=== PATIENT | male | born 1995 | race Caucasian/White ===

== ENCOUNTER 2016-12-18 12:23 | Emergency (ER) | payer OTHER ==
[2016-12-18 12:41] VITALS: RESP 18
--- NOTE | 2016-12-18 13:07 | ED ---
URI HPI - General Chief Complaint: Upper Respiratory Infection Stated Complaint: Sinus Infection Time Seen by Provider: 12/18/16 12:52 Source: patient, RN notes reviewed Mode of arrival: ambulatory Limitations: no limitations - History of Present Illness Initial Comments: 21-year-old male presents to the emergency department with a chief complaint of cough cold runny nose like symptoms. The patient has been sick for the last day or so. He states she's had a lot of nasal drainage and a lot of facial pressure. Patient states he hasn't had a fever or chills. Patient states that he hasn't had any nausea or vomiting with this. Patient states he is concerned due to his continued symptoms so he thought that he should be evaluated. Patient states that he is not currently having any other complaints at this time. Patient denies any recent fever, chills, shortness of breath, chest pain, back pain, abdominal pain, nausea vomiting, numbness or tingling, dysuria or hematuria, constipation or diarrhea, headaches or visual changes, or any other current symptoms. - Related Data Previous Rx's Medication Instructions Recorded Azithromycin [Zithromax] 250 mg PO DIRECTED #6 tab 12/18/16 Allergies Allergy/AdvReac Type Severity Reaction Status Date / Time banana Allergy Nausea & Verified 12/18/16 13:17 Vomiting Review of Systems ROS Statement: Those systems with pertinent positive or pertinent negative responses have been documented in the HPI. ROS Other: All systems not noted in ROS Statement are negative. Past Medical History Past Medical History: No Reported History History of Any Multi-Drug Resistant Organisms: None Reported Additional Past Surgical History / Comment(s): Left Ear reconstruction Past Psychological History: ADD/ADHD Smoking Status: Never smoker Past Alcohol Use History: None Reported Past Drug Use History: Marijuana General Exam - General Exam Comments Initial Comments: General exam: Alert, active, comfortable in no apparent distress Head: Normocephalic Eyes: Normal reaction of pupils, equal size, normal range of extraocular motion Ears: normal external ear canals, pink tympanic membranes with normal cone of light on the right, patient does appear to have erythematous left tympanic membrane Nose: clear with pink turbinates Throat: no erythema or exudates with normal sized tonsils Neck: no masses, no nuchal rigidity Chest: no chest wall deformity Lungs: equal air entry with no crackles or wheeze CVS: S1 and S2 normal with no audible mumurs, regular rhythm Abdomen: no hepatosplenomegaly, normal bowel sounds, no guarding or rigidity Spine: no scoliosis or deformity Skin: no rashes Neurological: No focal deficits, tone is normal in all 4 extremities Limitations: no limitations Course Vital Signs 12/18/16 12:39 Temperature 99.2 F Pulse Rate 67 Respiratory 18 Rate Blood Pressure 116/61 O2 Sat by Pulse 100 Oximetry Medical Decision Making - Medical Decision Making 21-year-old male presents emergency Department what appears to be an otitis media on the left ear. This time we'll start the patient on azithromycin. We did discuss Motrin Tylenol for fever control. We discussed return parameters and stated that he understood and all his questions have been answered. At this time the patient will be discharged home. - Radiology Data Radiology results: report reviewed, image reviewed Disposition Clinical Impression: Left otitis media Disposition: HOME SELF-CARE Condition: Stable Instructions: Otitis Media (ED) Additional Instructions: Please use medication as discussed. Please follow up with family doctor if symptoms have not improved over the next two days. Please return to the emergency room if your symptoms increase or worsen or for any other concerns. Prescriptions: Azithromycin [Zithromax] 250 mg PO DIRECTED #6 tab Referrals: Geovanny Vogel MD [Primary Care Provider] - 1-2 days Time of Disposition: 13:21
--- NOTE | 2016-12-18 13:14 | XR ---
EXAMINATION TYPE: XR chest 2V DATE OF EXAM: 12/18/2016 1:10 PM COMPARISON: None HISTORY: 21-year-old male with cough and congestion TECHNIQUE: PA and lateral views FINDINGS: The cardiomediastinal silhouette, aorta, and pulmonary vasculature are within normal limits. There is peribronchial cuffing noted. No consolidation, air leak, or pleural effusion. IMPRESSION: Peribronchial cuffing suggests bronchitis, chronic asthma, or viral small airways disease.
[2016-12-18 13:38] VITALS: BP 115/68; PULSE 81; TEMP 97.9
== END 2016-12-18 13:37 | disposition home or self-care (01) ==
LOC: EC 12:23
DX: H66.92 Otitis media, unspecified, left ear (principal); R05 Cough; R09.89 Other specified symptoms and signs involving the circulatory and respiratory systems; Z91.018 Allergy to other foods
CPT/HCPCS: 71020; 99283

== ENCOUNTER 2017-08-19 23:47 | Emergency (ER) | payer OTHER ==
[2017-08-19 23:53] VITALS: BP 138/78; PULSE 88; RESP 16; TEMP 98.1
[2017-08-19] MEDS ORDERED: AMOXICILLIN 875 MG TAB PO STA (23:59)
--- NOTE | 2017-08-20 | ED ---
ENT HPI - General Chief complaint: ENT Stated complaint: earache Time Seen by Provider: 08/19/17 23:56 Source: patient, RN notes reviewed Mode of arrival: ambulatory Limitations: no limitations - History of Present Illness Initial comments: 21-year-old male present emergency from chief complaint left ear pain. Patient states that he's been sick last 2 days with sinus congestion. Patient did reconstructive surgery on his left ear. He states concern is that increase in pain. Patient also said mild right ear pain. Denies sore throat, cough, chest congestion. Patient does admit to low-grade temp at home. Patient has not taken any [id number] cough and cold medications. He has taken some ibuprofen. - Related Data Previous Rx's Medication Instructions Recorded Amoxicillin 875 mg PO Q12HR #20 tablet 08/20/17 Allergies Allergy/AdvReac Type Severity Reaction Status Date / Time banana Allergy Nausea & Verified 12/18/16 13:17 Vomiting Review of Systems ROS Statement: Those systems with pertinent positive or pertinent negative responses have been documented in the HPI. ROS Other: All systems not noted in ROS Statement are negative. Past Medical History Past Medical History: No Reported History History of Any Multi-Drug Resistant Organisms: None Reported Additional Past Surgical History / Comment(s): Left Ear reconstruction Past Psychological History: ADD/ADHD Smoking Status: Never smoker Past Alcohol Use History: Occasional Past Drug Use History: Marijuana General Exam Limitations: no limitations General appearance: alert, in no apparent distress Head exam: Present: atraumatic, normocephalic, normal inspection Eye exam: Present: normal appearance, PERRL, EOMI. Absent: scleral icterus, conjunctival injection, periorbital swelling ENT exam: Present: normal oropharynx, mucous membranes moist, normal external ear exam. Absent: normal exam, TM's normal bilaterally (Mild erythema left) Neck exam: Present: normal inspection, full ROM. Absent: tenderness, meningismus, lymphadenopathy Respiratory exam: Present: normal lung sounds bilaterally. Absent: respiratory distress, wheezes, rales, rhonchi, stridor Cardiovascular Exam: Present: regular rate, normal rhythm, normal heart sounds. Absent: systolic murmur, diastolic murmur, rubs, gallop, clicks Course Vital Signs 08/19/17 23:51 Temperature 98.1 F Pulse Rate 88 Respiratory 16 Rate Blood Pressure 138/78 O2 Sat by Pulse 97 Oximetry Medical Decision Making - Medical Decision Making 21-year-old male present emergency from for left ear pain. Patient is mild erythema consistent with early otitis media. Patient was started on amoxicillin return parameters were discussed. Disposition Clinical Impression: Otitis media Disposition: HOME SELF-CARE Condition: Stable Instructions: Earache (ED) Additional Instructions: Please return to the Emergency Department if symptoms worsen or any other concerns. Prescriptions: Amoxicillin 875 mg PO Q12HR #20 tablet Referrals: Geovanny Vogel MD [Primary Care Provider] - 1-2 days
== END 2017-08-20 00:19 | disposition home or self-care (01) ==
LOC: EC 23:47
DX: H60.92 Unspecified otitis externa, left ear (principal); R09.81 Nasal congestion; R05 Cough; Z91.018 Allergy to other foods
CPT/HCPCS: 99282

== ENCOUNTER 2017-09-08 20:19 | Emergency (ER) | payer OTHER ==
[2017-09-08 20:25] VITALS: BP 137/72; PULSE 80; RESP 18; TEMP 98
--- NOTE | 2017-09-08 20:38 | ED ---
General Adult HPI - General Chief complaint: Recheck/Abnormal Lab/Rx Stated complaint: STD Testing Time Seen by Provider: 09/08/17 20:20 Source: patient, RN notes reviewed Mode of arrival: ambulatory Limitations: no limitations - History of Present Illness Initial comments: This is a 22-year-old male who was recently diagnosed with herpes. Patient states he went to the clinic and they did a culture and they put him on acyclovir. Patient states since then he followed up with health department they did a culture and he is to get the results from there. Patient states he came in today to get a third culture. Patient states the lesions are still there but he wants to know if he has herpes type I and type II even though he hasn't got the results back from either of the other 2 cultures yet. Patient denies any new symptoms. Patient denies any fever chills per patient denies any penile drainage. - Related Data Home Medications Medication Instructions Recorded Confirmed No Known Home Medications [No 09/08/17 09/08/17 Known Home Medications] Allergies Allergy/AdvReac Type Severity Reaction Status Date / Time banana Allergy Nausea & Verified 09/08/17 20:25 Vomiting Review of Systems ROS Statement: Those systems with pertinent positive or pertinent negative responses have been documented in the HPI. ROS Other: All systems not noted in ROS Statement are negative. Past Medical History Past Medical History: No Reported History History of Any Multi-Drug Resistant Organisms: None Reported Additional Past Surgical History / Comment(s): Left Ear reconstruction Past Psychological History: ADD/ADHD Smoking Status: Never smoker Past Alcohol Use History: Occasional Past Drug Use History: Marijuana General Exam - General Exam Comments Initial Comments: GENERAL: Patient is well-developed and well-nourished. Patient is nontoxic and well- hydrated and is in no acute distress. ENT: Neck is soft and supple. No significant lymphadenopathy is noted. Oropharynx is clear. Moist mucous membranes. EYES: The sclera were anicteric and conjunctiva were pink and moist. Extraocular movements were intact and pupils were equal round and reactive to light. Eyelids were unremarkable. NEUROLOGIC: Patient is alert and oriented x3. Cranial nerves II through XII are grossly intact. Motor and sensory are also intact. Normal speech, volume and content. Symmetrical smile. Cerebellar exam grossly intact. MUSCULOSKELETAL: Normal extremities with adequate strength and full range of motion. PSYCHIATRIC: Normal psychiatric evaluation. Limitations: no limitations Course Vital Signs 09/08/17 20:22 Temperature 98 F Pulse Rate 80 Respiratory 18 Rate Blood Pressure 137/72 O2 Sat by Pulse 99 Oximetry Disposition Clinical Impression: History of herpes genitalis Disposition: HOME SELF-CARE Referrals: Geovanny Vogel MD [Primary Care Provider] - 1-2 days Time of Disposition: 20:38
== END 2017-09-08 20:54 | disposition home or self-care (01) ==
LOC: EC 20:19
DX: A60.00 Herpesviral infection of urogenital system, unspecified (principal); Z91.018 Allergy to other foods
CPT/HCPCS: 99281

== ENCOUNTER 2019-02-20 11:33 | Emergency (ER) | payer OTHER ==
[2019-02-20 11:43] VITALS: BP 127/74; PULSE 60; RESP 18; TEMP 98.2
[2019-02-20] MEDS ORDERED: DEXAMETHASONE SOD PHOSPHATE 10 MG/ML 1 ML VIAL IM STA (12:07)
[2019-02-20] MEDS ORDERED: IBUPROFEN 800 MG TAB PO STA (12:07)
[2019-02-20] MEDS ORDERED: ACETAMINOPHEN TAB 500 MG TAB PO STA (12:07)
--- NOTE | 2019-02-20 13:24 | XR ---
EXAMINATION TYPE: XR lumbosacral spine min 4V DATE OF EXAM: 02/20/2019 COMPARISON: NONE HISTORY: 28-year-old male with sciatic pain for 4 days TECHNIQUE: 5 views FINDINGS: 5 lumbar type vertebral bodies. Facet arthropathy lower lumbar spine. Vertebral body heights are pres erved and alignment is maintained. IMPRESSION: No vertebral compression collapse or malalignment. Mild facet arthropathy lower lumbar spine.
--- NOTE | 2019-02-20 13:29 | ED ---
Back Pain HPI - General Chief Complaint: Back Pain/Injury Stated Complaint: Back Pain/Numbness Time Seen by Provider: 02/20/19 11:47 Source: patient, RN notes reviewed, old records reviewed Limitations: no limitations - History of Present Illness Initial Comments: This is a 23-year-old male the ER for evasive back pain. No history of back injury or trauma. Patient is complaining of pain in his right thigh right hamstring down back of right leg. Patient denies trauma. No fevers. No loss of bowel or bladder. No other complaints. MD Complaint: back pain, other (Right leg pain) -: days(s) Similar Symptoms Previously: No Place: home Radiation: none Severity: mild Severity scale (1-10): 3 Quality: sharp, tingling Consistency: intermittent Improves With: none Worsens With: none Context: unknown Associated Symptoms: denies other symptoms - Related Data Home Medications Medication Instructions Recorded Confirmed No Known Home Medications 09/08/17 02/20/19 Allergies Allergy/AdvReac Type Severity Reaction Status Date / Time banana AdvReac Nausea & Verified 02/20/19 12:26 Vomiting Review of Systems ROS Statement: Those systems with pertinent positive or pertinent negative responses have been documented in the HPI. ROS Other: All systems not noted in ROS Statement are negative. Past Medical History Past Medical History: No Reported History History of Any Multi-Drug Resistant Organisms: None Reported Past Surgical History: Ear Surgery Additional Past Surgical History / Comment(s): Left Ear reconstruction Past Psychological History: ADD/ADHD Smoking Status: Never smoker Past Alcohol Use History: None Reported Past Drug Use History: Marijuana General Exam Limitations: no limitations General appearance: alert, in no apparent distress Head exam: Present: atraumatic, normocephalic, normal inspection Eye exam: Present: normal appearance, PERRL, EOMI. Absent: scleral icterus, conjunctival injection, periorbital swelling ENT exam: Present: normal exam, mucous membranes moist Neck exam: Present: normal inspection. Absent: tenderness, meningismus, lymphadenopathy Respiratory exam: Present: normal lung sounds bilaterally. Absent: respiratory distress, wheezes, rales, rhonchi, stridor Cardiovascular Exam: Present: regular rate, normal rhythm, normal heart sounds. Absent: systolic murmur, diastolic murmur, rubs, gallop, clicks GI/Abdominal exam: Present: soft, normal bowel sounds. Absent: distended, tenderness, guarding, rebound, rigid Extremities exam: Present: normal inspection, full ROM, normal capillary refill. Absent: tenderness, pedal edema, joint swelling, calf tenderness Back exam: Present: normal inspection Neurological exam: Present: alert, oriented X3, CN II-XII intact Psychiatric exam: Present: normal affect, normal mood Skin exam: Present: warm, dry, intact, normal color. Absent: rash Course Vital Signs 02/20/19 11:40 Temperature 98.2 F Pulse Rate 60 Respiratory 18 Rate Blood Pressure 127/74 O2 Sat by Pulse 100 Oximetry Medical Decision Making - Medical Decision Making 23 male the ER for evaluation of back pain. Patient's back pain improved here in the ER. X-rays normal patient can be discharged home - Radiology Data Radiology results: report reviewed (X-ray lumbar sacral spine negative for traumatic injury), image reviewed Disposition Clinical Impression: Sciatica, Lumbar radiculopathy Disposition: HOME SELF-CARE Condition: Good Instructions (If sedation given, give patient instructions): Acute Low Back Pain (ED) Is patient prescribed a controlled substance at d/c from ED?: No Referrals: Geovanny Vogel MD [Primary Care Provider] - 1-2 days
== END 2019-02-20 14:07 | disposition home or self-care (01) ==
LOC: EC 11:33
DX: M54.16 Radiculopathy, lumbar region (principal); M54.31 Sciatica, right side; Z91.018 Allergy to other foods
CPT/HCPCS: 72110; 99284; 96372; J1100

== ENCOUNTER 2019-11-21 09:42 | Emergency (ER) | payer OTHER ==
[2019-11-21 09:47] VITALS: BP 101/70; PULSE 72; RESP 18; TEMP 97.4
--- NOTE | 2019-11-21 10:28 | ED ---
General Adult HPI - General Chief complaint: ENT Stated complaint: ears bothering him Time Seen by Provider: 11/21/19 10:05 Source: patient, RN notes reviewed Mode of arrival: ambulatory Limitations: no limitations - History of Present Illness Initial comments: 24-year-old male presents to the emergency determine for bilateral ear pain. Patient states that his ears have felt like pressure in them for the past week. States that he feels mildly congested as well. He states pain is only minimal. He has not had any fevers or chills. He denies neck stiffness. Denies any drainage from the ears. States he is able to hear out of his ears. Patient has not tried any medications. Patient did have his left eardrum reconstructed when he was a child after a perforation. No other problems with this. Patient has no other complaints at this time including shortness of breath, chest pain, abdominal pain, nausea or vomiting, headache, or visual changes. - Related Data Previous Rx's Medication Instructions Recorded Amoxicillin/Potassium Clav 1 tab PO Q12HR #20 tab 11/21/19 [Augmentin 875-125 Tablet] Fluticasone Nasal [place] [Flonase 1 spray EA NOSTRIL DAILY 7 Days #1 11/21/19 Nasal [place]] bottle Loratadine [Claritin] 10 mg PO DAILY #20 tab 11/21/19 Allergies Allergy/AdvReac Type Severity Reaction Status Date / Time banana AdvReac Nausea & Verified 11/21/19 09:44 Vomiting Review of Systems ROS Statement: Those systems with pertinent positive or pertinent negative responses have been documented in the HPI. ROS Other: All systems not noted in ROS Statement are negative. Past Medical History Past Medical History: No Reported History History of Any Multi-Drug Resistant Organisms: None Reported Past Surgical History: Ear Surgery Additional Past Surgical History / Comment(s): Left Ear reconstruction Past Psychological History: ADD/ADHD Smoking Status: Never smoker Past Alcohol Use History: None Reported Past Drug Use History: Marijuana General Exam Limitations: no limitations General appearance: alert, in no apparent distress Head exam: Present: atraumatic, normocephalic, normal inspection Eye exam: Present: normal appearance, PERRL, EOMI. Absent: scleral icterus, conjunctival injection, periorbital swelling ENT exam: Present: normal exam, normal oropharynx, mucous membranes moist, TM's normal bilaterally (serous fluid filled ear drums bilaterally. No erythema. No evidence of perforation), normal external ear exam, other (no tenderness or erythema of the sinuses) Neck exam: Present: normal inspection, full ROM. Absent: tenderness, meningismus, lymphadenopathy Respiratory exam: Present: normal lung sounds bilaterally. Absent: respiratory distress, wheezes, rales, rhonchi, stridor Cardiovascular Exam: Present: regular rate, normal rhythm, normal heart sounds. Absent: systolic murmur, diastolic murmur, rubs, gallop, clicks Course Vital Signs 11/21/19 09:44 Temperature 97.4 F L Pulse Rate 72 Respiratory 18 Rate Blood Pressure 101/70 O2 Sat by Pulse 99 Oximetry Medical Decision Making - Medical Decision Making Patient presents for bilateral ear pressure and pain for the past week. Patient has had similar symptoms before. Patient did have reconsider surgery on his left tympanic membrane when he was a child, no Occasions with this. No fevers or chills in the past week. Patient has minimal congestion. Has not had any medications. Physical exam reveals serous fluid-filled tubular membranes bilaterally. There is no erythema. Possible otitis media. Patient will be treated with Augmentin. He will also be treated with Claritin and nasal spray. He will follow-up with his doctor. He will also be given ENT referral. He will return here if he has any worsening symptoms. Disposition Clinical Impression: Ear pain Disposition: HOME SELF-CARE Condition: Good Instructions (If sedation given, give patient instructions): Earache (ED) Additional Instructions: Please follow up with primary care and ENT 1-2 days. Use medications as directed. If you have any worsening symptoms return here to the emergency department. Prescriptions: Amoxicillin/Potassium Clav [Augmentin 875-125 Tablet] 1 tab PO Q12HR #20 tab Loratadine [Claritin] 10 mg PO DAILY #20 tab Fluticasone Nasal [place] [Flonase Nasal [place]] 1 spray EA NOSTRIL DAILY 7 Days #1 bottle Is patient prescribed a controlled substance at d/c from ED?: No Referrals: Geovanny Vogel MD [Primary Care Provider] - 1-2 days Salo Jeter MD [STAFF PHYSICIAN] - 1-2 days Time of Disposition: 10:27
== END 2019-11-21 10:40 | disposition home or self-care (01) ==
LOC: EC 09:42
DX: H92.03 Otalgia, bilateral (principal); R09.89 Other specified symptoms and signs involving the circulatory and respiratory systems; Z91.018 Allergy to other foods
CPT/HCPCS: 99282

== ENCOUNTER → 2020-06-29 | Outpatient (CLI) | payer OTHER ==
--- NOTE | 2020-06-30 09:07 | CT ---
EXAMINATION TYPE: CT iac wo con DATE OF EXAM: 06/29/2020 COMPARISON: HISTORY: Mastoiditis RT ear CT DLP: 222mGycm Automated exposure control for dose reduction was used. FINDINGS: The external auditory canals are remarkable for abnormal soft tissue on the left extending into the middle ear, abnormal soft tissue is present within the middle ear on the right and developin g the auditory ossicles and extending into the attic with sclerosis of the surrounding bone suggestin g chronic infection. The left ear shows widened external auditory canal, no aerated portion of mastoid cells is seen bilat erally, some sclerosis also present in the temporal bone on the left suggesting chronic infection. Au ditory ossicles on the left and not seen. Cochlea and semicircular canals are symmetric. Internal aud itory canals do not appear dilated. Mastoid air cells are well aerated. Portions of the ethmoid air cells show inflammatory change. Ostio meatal units are patent. Some mild inflammatory change, possible polyp present in the right maxillary sinus. Temporomandibular joints are intact. IMPRESSION: Question prior postop change involving the left ear versus chronic infection, cholesteato ma. Correlate for possible cholesteatoma, inflammatory change involving the right middle ear.
== END | disposition home or self-care (01) ==
LOC: RADCTMAIN 16:38
PROVIDERS: ATTEND Otolaryngology
DX: H70.11 Chronic mastoiditis, right ear (principal); Z98.890 Other specified postprocedural states
CPT/HCPCS: 70480

== ENCOUNTER → 2020-08-02 | Outpatient (CLI) | payer OTHER | END | disposition home or self-care (01) | LOC: LABWHC1 16:07 | PROVIDERS: ATTEND Otolaryngology | DX: Z01.818 Encounter for other preprocedural examination (principal) | CPT/HCPCS: U0003; C9803 ==

== ENCOUNTER 2021-09-08 20:24 | Emergency (ER) | payer OTHER ==
--- NOTE | 2021-09-08 21:35 | XR ---
EXAMINATION TYPE: XR chest 2V DATE OF EXAM: 09/08/2021 COMPARISON: Chest x-ray December 18, 2016 HISTORY: Salter injury with pain. TECHNIQUE: Frontal and lateral views of the chest are obtained. FINDINGS: There is no suspicious new focal air space opacity, pleural effusion, or pneumothorax seen . The cardiac silhouette size is upper limits of normal. The osseous structures are intact. IMPRESSION: No acute process.
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
[2021-09-08] MEDS ORDERED: TOPICAL SKIN ADHESIVE 1 EACH AMP TOPICAL ONE (22:13)
[2021-09-08 22:36] VITALS: BP 130/85; PULSE 75; RESP 12; TEMP 98.8
[2021-09-08 22:36] LABS: Basophils # (A) 0.1 k/uL (0-0.2); Basophils % (A) 0 %; Eosinophils # (A) 0.1 k/uL (0-0.7); Eosinophils % (A) 1 %; HGB 15.1 gm/dL (13.0-17.5); Lymphocytes # (A) 1.6 k/uL (1.0-4.8); Lymphocytes % (A) 12 %; MCH 29.3 pg (25.0-35.0); MCHC 33.6 g/dL (31.0-37.0); MCV 87.1 fL (80.0-100.0); Mean Platelet Volume 8.3; Monocytes # (A) 0.6 k/uL (0-1.0); Monocytes % (A) 5 %; Neutrophils # (A) 10.6 k/uL (1.3-7.7); Neutrophils % (A) 81 %; Platelet Count 306 k/uL (150-450); RBC 5.17 m/uL (4.30-5.90); RDW 12.7 % (11.5-15.5); WBC 13.1 k/uL (3.8-10.6)
[2021-09-08 22:48] LABS: ALT 21 U/L (4-49); AST 41 U/L (17-59); African American GFR (CKD) >90 (>60 ml/min/1.73 sqM); Albumin 5.1 g/dL (3.5-5.0); Alkaline Phosphatase 72 U/L (38-126); Anion Gap 15 mmol/L; Blood Urea Nitrogen 16 mg/dL (9-20); Calcium 9.8 mg/dL (8.4-10.2); Carbon Dioxide 22 mmol/L (22-30); Chloride 107 mmol/L (98-107); Glucose 79 mg/dL (74-99); Non-African American GFR(CKD) >90 (>60 ml/min/1.73 sqM); Potassium 3.7 mmol/L (3.5-5.1); Sodium 144 mmol/L (137-145); Total Bilirubin 0.3 mg/dL (0.2-1.3); Total Protein 8.7 g/dL (6.3-8.2)
[2021-09-08 22:56] LABS: INR 0.9 (<1.2); Prothrombin Time 9.7 sec (9.0-12.0)
[2021-09-08 23:02] LABS: Alcohol 114 mg/dL
== END 2021-09-08 22:35 | disposition other institution (70) ==
LOC: EC 20:24
DX: S06.6X9A Traumatic subarachnoid hemorrhage with loss of consciousness of unspecified duration, initial encounter (principal); S06.5X9A Traumatic subdural hemorrhage with loss of consciousness of unspecified duration, initial encounter; S01.112A Laceration without foreign body of left eyelid and periocular area, initial encounter; F12.90 Cannabis use, unspecified, uncomplicated; Y09 Assault by unspecified means; Y92.009 Unspecified place in unspecified non-institutional (private) residence as the place of occurrence of the external cause
CPT/HCPCS: 93005; 80053; 85025; 85610; 85730; 71046; 72125; 70486; 70450; 12011; 99285; G0480; 80320

== ENCOUNTER 2021-09-09 21:58 | Emergency (ER) | payer OTHER ==
[2021-09-09 22:08] VITALS: RESP 18; TEMP 98
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
[2021-09-10 05:50] VITALS: BP 132/80; PULSE 70
== END 2021-09-10 05:58 | disposition home or self-care (01) ==
LOC: EC 21:58
DX: F32.A Depression, unspecified (principal); F19.959 Other psychoactive substance use, unspecified with psychoactive substance-induced psychotic disorder, unspecified; F12.90 Cannabis use, unspecified, uncomplicated
CPT/HCPCS: 82075; 99284

== ENCOUNTER → 2022-01-09 | Outpatient (CLI) | payer OTHER ==
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
== END | disposition home or self-care (01) ==
LOC: RADCTMAIN 07:04
PROVIDERS: ATTEND Otolaryngology
DX: H74.8X3 Other specified disorders of middle ear and mastoid, bilateral (principal); H92.12 Otorrhea, left ear
CPT/HCPCS: 70480